=== PATIENT | female | born 1970 | race Two or more races ===

== ENCOUNTER → 2018-06-24 | Day surgery (SDC) | payer OTHER ==
[~2018-06-24] MED LIST: IV RINGERS,LACTATED 1000ML 1,000 ML IV SCH; LIDOCAINE 1% PF 2 ML VIAL. ID PRN; MIDAZOLAM HCL/PF 2 MG/2 ML VIAL. IV PRN; PROPOFOL 40 ML IV ONE; fentaNYL PF VIAL 100 MCG/2 ML VIAL IV PRN
[2018-06-24 11:01] LABS: U PREG PATIENT NEGATIVE (NEG)
[2018-06-24 11:25] VITALS: BP 135/78
== END | disposition home or self-care (01) ==
LOC: SURG 10:18
PROVIDERS: ATTEND Internal Medicine Gastroenterology
DX: K57.30 Diverticulosis of large intestine without perforation or abscess without bleeding (principal); K64.0 First degree hemorrhoids; E11.9 Type 2 diabetes mellitus without complications; D64.9 Anemia, unspecified; J45.909 Unspecified asthma, uncomplicated; Z83.79 Family history of other diseases of the digestive system; Z79.899 Other long term (current) drug therapy; Z79.84 Long term (current) use of oral hypoglycemic drugs
CPT/HCPCS: 45378; 81025; J2704